=== PATIENT | male | born 1980 | race Caucasian/White ===

== ENCOUNTER 2018-01-20 20:28 | Emergency (ER) | payer OTHER ==
[~2018-01-20] VITALS: Ht 167.6 cm; Wt 83.9 kg
[2018-01-20 20:29] VITALS: BP_SYST 144
[2018-01-20 22:15] VITALS: BP_SYST 136
== END 2018-01-20 22:15 ==
LOC: SED 20:28
DX: Z04.1 Encounter for examination and observation following transport accident (principal)
CPT/HCPCS: 99283